=== PATIENT | male | born 1955 | race Caucasian/White ===

== ENCOUNTER 2017-10-07 13:22 | Outpatient (CLI) | END 2017-10-07 13:23 | disposition home or self-care (01) | LOC: FCC-LAB 13:22 | PROVIDERS: ATTEND Family Medicine | DX: E11.9 Type 2 diabetes mellitus without complications (principal); E78.5 Hyperlipidemia, unspecified; I10 Essential (primary) hypertension; E11.42 Type 2 diabetes mellitus with diabetic polyneuropathy | CPT/HCPCS: 36415; 80053; 80061; 82607; 82746; 83037; 85025 ==

== ENCOUNTER 2017-11-08 14:40 | Outpatient (CLI) | END 2017-11-08 14:41 | disposition home or self-care (01) | LOC: FCC-LAB 14:40 | PROVIDERS: ATTEND Family Medicine | DX: E83.52 Hypercalcemia (principal); N17.9 Acute kidney failure, unspecified | CPT/HCPCS: 36415; 80053 ==

== ENCOUNTER 2018-02-16 11:58 | Outpatient (CLI) | END 2018-02-16 11:59 | disposition home or self-care (01) | LOC: FCC-LAB 11:58 | PROVIDERS: ATTEND Family Medicine | DX: E11.9 Type 2 diabetes mellitus without complications (principal) | CPT/HCPCS: 82043 ==

== ENCOUNTER 2018-12-07 11:08 | Outpatient (CLI) | END 2018-12-07 11:09 | disposition home or self-care (01) | LOC: RHC-LAB 11:08 → FCC-LAB 11:09 | PROVIDERS: ATTEND Family Medicine | DX: E78.5 Hyperlipidemia, unspecified (principal); I10 Essential (primary) hypertension; E11.9 Type 2 diabetes mellitus without complications; M10.072 Idiopathic gout, left ankle and foot | CPT/HCPCS: 36415; 80053; 80061; 82043; 83037; 84550; 85025 ==